=== PATIENT | male | born 1985 | race Two or more races ===

== ENCOUNTER 2024-02-15 02:38 | Emergency (ER) | payer MEDICAID, OTHER ==
[~2024-02-15] VITALS: Ht 180.3 cm; Wt 99.1 kg
--- NOTE | 2024-02-15 03:31 | ED.PDOC ---
History of Present Illness HPI Comments 38-year-old male with no PMHx presents with a chief complaint of flank pain and abdominal pain x onset midnight. Patient states that his pain is localized to his left flank, non-radiating and describes as sharp. Patient also mentions that his abdominal pain is localized to his epigastric region, non-radiating, and is aching in nature. Patient denies any injuries or trauma prior to onset of symptoms. Associated with dysuria. Patient denies hematuria, constipation, nausea, vomiting, or diarrhea. No other symptoms or modifying factors present at this time. Chief Complaint: Flank Pain Time Seen by MD: 03:03 Reviewed Notes: Medications, Allergies Allergies: Coded Allergies: NO KNOWN ALLERGIES (Unverified , 02/15/24) Home Meds Active Scripts Acetaminophen (Acetaminophen Er) 650 Mg Tab, 650 MG PO Q6HPRN PRN for 5 Days, #20 TAB Prov:SOFIA DE SOUZA MD 02/15/24 Ketorolac Tromethamine (Ketorolac Tromethamine) 10 Mg Tab, 1 TAB PO TID for 3 Days, #9 TAB Prov:SOFIA DE SOUZA MD 02/15/24 Tamsulosin Hcl (Flomax) 0.4 Mg Cap, 1 CAP PO DAILY for 7 Days, #30 CAP 11 Refills Prov:SOFIA DE SOUZA MD 02/15/24 Ondansetron Odt 4MG Tab (ZOFRAN PO) 4 Mg Tb, 4 MG PO Q8HPRN PRN for 3 Days, #9 TAB ODT TAB-DISSOLVE IN MOUTH, THEN SWALLOW Prov:SOFIA DE SOUZA MD 02/15/24 Information Source: Patient Mode of Arrival: Ambulatory Severity: Moderate Timing: Hours Duration: Since onset Prehospital treatment: None Vital Signs Vital Signs Date Time Temp Pulse Resp B/P (MAP) Pulse Ox O2 Delivery O2 Flow Rate FiO2 02/15/24 05:06 98.1 54 18 122/83 (96) 98 98.1 Physical Exam General: Awake, alert and oriented. No acute distress. Skin: Skin in warm, dry and intact. Appropriate color for ethnicity. Nailbeds pink with no cyanosis. HEENT: The head is normocephalic and atraumatic. Conjunctivae are clear without exudates or hemorrhage. Sclera is non-icteric. EOM are intact. No signs of nystagmus. Eyelids are normal in appearance without swelling or lesions. Oral mucosa is pink and moist Neck: The neck is supple with normal range of motion. No JVD. Cardiac: Heart rate and rhythm are normal. No murmurs, gallops, or rubs are auscultated. Respiratory: No signs of respiratory distress. Lung sounds are clear in all lobes bilaterally without rales, ronchi, or wheezes. Abdominal: Abdomen is soft, positive left flank and left lower quadrant tenderness. No CVA tenderness. Bowel sounds are present and normoactive in all four quadrants. Extremities: Upper and lower extremities are atraumatic in appearance without deformity or edema. Neurological: The patient is awake, alert and oriented to person, place, and time with normal speech. Speech is clear. There is no facial asymmetry. Psychiatric: Appropriate mood and affect. Good judgement and insight. No visual or auditory hallucinations. Review of Systems: As stated in HPI Past Medical History PAST MEDICAL HISTORY: Denies Surgical History: Denies all surgeries Family History Family History: Reviewed,noncontributory to illness Social History Smoker: Non-Smoker Alcohol: Denies ETOH Use Drugs: Denies Drug Use Lives In: Home Was a procedure done? Was a procedure done?: No Differential Dx Considerations may include: Differential diagnoses considered include: Nephrolithiasis, Abdominal aortic aneurysm, intestinal obstruction, perforated viscus diverticulitis, gastritis, gastroenteritis, peptic ulcer disease, ureteral colic, constipation, GERD, irritable syndrome, abdominal wall pain, nonspecific abdominal pain, constipation, , other X-Ray, Labs, Meds, VS Vital Signs Date Time Temp Pulse Resp B/P (MAP) Pulse Ox O2 Delivery O2 Flow Rate FiO2 02/15/24 05:06 98.1 54 18 122/83 (96) 98 98.1 02/15/24 03:15 97.7 50 20 136/67 (90) 100 Lab Test 02/15/24 03:22 02/15/24 02:53 Range/Units White Blood Count 14.2 H 4.4-10.8 10^3/uL Red Blood Count 5.07 4.5-5.90 10^6/uL Hemoglobin 15.5 13.5-17.5 g/dL Hematocrit 44.7 41.0-53.0 % Mean Corpuscular Volume 88.3 80.0-100.0 fL Mean Corpuscular Hemoglobin 30.5 28.0-32.0 pg Mean Corpuscular Hemoglobin Concent 34.6 32.0-36.0 g/dL Red Cell Distribution Width 13.0 11.8-14.3 % Platelet Count 266 140-450 10^3/uL Mean Platelet Volume 8.6 6.9-10.8 fL Neutrophils (%) (Auto) 81.2 H 37.0-80.0 % Lymphocytes (%) (Auto) 14.5 10.0-50.0 % Monocytes (%) (Auto) 3.6 0.0-12.0 % Eosinophils (%) (Auto) 0.6 0.0-7.0 % Basophils (%) (Auto) 0.1 0.0-2.0 % Neutrophils # (Auto) 11.5 H 1.6-8.6 10 ^3/uL Lymphocytes # (Auto) 2.1 0.4-5.4 10 ^3/uL Monocytes # (Auto) 0.5 0-1.3 10 ^3/uL Eosinophils # (Auto) 0.1 0-0.8 10 ^3/uL Basophils # (Auto) 0 0-0.2 10 ^3/uL Nucleated Red Blood Cells 0.0 % Sodium Level 140 136-145 mmol/L Potassium Level 4.0 3.5-5.1 mmol/L Chloride Level 101 98-107 mmol/L Carbon Dioxide Level 29 20-31 mmol/L Anion Gap 10 5-15 Blood Urea Nitrogen 18 9-23 mg/dL Creatinine 1.24 0.700-1.30 mg/dL Glomerular Filtration Rate Calc 77 >90 mL/min BUN/Creatinine Ratio 14.5 10.0-20.0 Serum Glucose 149 H 74-106 mg/dL Calcium Level 10.2 8.7-10.4 mg/dL Total Bilirubin 0.6 0.2-1.0 mg/dL Aspartate Amino Transferase (AST) 22 13-40 U/L Alanine Aminotransferase (ALT) 27 7-40 U/L Alkaline Phosphatase 91 46-116 U/L Total Protein 7.3 5.7-8.2 g/dL Albumin 4.7 3.2-4.8 g/dL Urine Color Yellow Yellow Urine Clarity Clear Clear Urine pH 5.5 5.0-9.0 Urine Specific [place] 1.029 1.001-1.035 Urine Protein Trace H Negative Urine Ketones Negative Negative Urine Blood Negative Negative /uL Urine Nitrite Negative Negative Urine Bilirubin Negative Negative Urine Urobilinogen Normal Negative mg/dL Urine Leukocyte Esterase Negative Negative /uL Urine RBC None seen 0 - 3 /hpf Urine WBC 1 0 - 3 /hpf Urine Squamous Epithelial Cells None seen <5 /hpf Urine Calcium Oxalate Crystals Few None Seen Urine Bacteria None seen None Seen /hpf Urine Mucus Few None Seen Urine Glucose Normal Normal mg/dL Current Medications Medications (Trade) Dose Ordered Sig/James Route Start Time Stop Time Status Last Admin Ketorolac Tromethamine (Toradol Injection) 60 mg ONCE ONCE IM 02/15/24 03:45 02/15/24 03:46 DC 02/15/24 05:10 Ondansetron HCl (Zofran Po) 4 mg ONCE ONCE PO 02/15/24 03:45 02/15/24 03:46 DC 02/15/24 05:09 Time of 1ST Reevaluation: 03:33 Reevaluation 1ST: Unchanged Patient Education/Counseling: Diagnosis, Treatment, Prognosis Family Education/Counseling: No Family Present Departure 1 Departure Time of Disposition: 05:14 Impression: Primary Impression: Nephrolithiasis Disposition: 01 HOME / SELF CARE / HOMELESS Condition: Stable Additional Instructions: INSTRUCCIONES DE JEIMY DE Urgencias Instrucciones: Krista atentamente todas las instrucciones proporcionadas en lela paquete. Carpenter tomografa computarizada mostr que tiene un clculo renal de 0,2 cm en el lado leigh ann que pasa hacia la vejiga. Aunque le hayan dado el jeimy del Departamento de Emergencias, esto no significa que tenga un "certificado de buena mojgan". Es posible que ests en proceso de desarrollar gisella enfermedad grave. Es por eso que debe regresar al servicio de urgencias sin falta si presenta algn sntoma nuevo o que empeora (especialmente si johana sntomas incluyen dolor en el pecho, dificultad para respirar, dolor abdominal, fiebre, dolor de deann, confusin, dificultad para myron o caminar). Tambin es muy importante que consulte a un mdico de atencin primaria dentro de los prximos 3 a 5 winkler para realizar un seguimiento. Si no puede conseguir gisella ale, regrese al servicio de urgencias para gisella nueva evaluacin. Qu son los clculos renales? Los clculos renales son pequeas piedras que se arturo dentro de los riones cuando las sales y los minerales que se encuentran normalmente en la orina se acumulan y se endurecen. Los clculos renales generalmente se expulsan del cuerpo al orinar, jean a veces pueden quedarse atascados en el nora (figura 1). Si eso sucede, los clculos pueden causar: ?Dolor en el costado o en la parte baja del sha del estmago ?Brie en la orina (que puede hacer que la orina luzca mike o paul) ?Nuseas o vmitos ?Dolor al orinar ?Necesidad de orinar en forma urgente Computing Systems Mechanic s si tengo clculos renales? Si carpenter mdico o enfermero piensa que usted tiene clculos renales, puede indicarle un estudio de imagen para detectar los clculos. (Los estudios de imagen crean imgenes del interior del cuerpo). Computing Systems Mechanic se tratan los clculos renales? El tratamiento de cada persona es un poco distinto. El tratamiento adecuado para usted depender de: ?El tamao, el tipo y la ubicacin del clculo ?Cunto dolor sienta ?Cunto est vomitando Si carpenter clculo es pequeo y solo causa sntomas leves, es posible que pueda quedarse en casa y esperar hasta que carpenter cuerpo lo expulse en la orina. Si probar esta opcin, carpenter mdico le dir qu hacer. [place] suele incluir: ?Beber mucho lquido ?Usar medicinas para el dolor o medicinas que faciliten la expulsin del clculo ?Orinar en un colador para atrapar el clculo cuando salga Si carpenter clculo es riky o causa sntomas graves, es posible que necesite tratamiento en el hospital. Los clculos renales que no se expulsan naturalmente se pueden tratar con: ?"Litotripsia por onda de choque" Gisella mquina usa ondas sonoras para romper los clculos en pedazos ms pequeos. Lela procedimiento no incluye ciruga, jean puede ser doloroso. ?"Nefrolitotoma percutnea" Lela es un tipo especial de ciruga en la que un mdico hace orificios muy pequeos en carpenter piel, y pasa unos instrumentos minsculos a travs de los orificios y dentro del rin. Luego, elimina el clculo. ?"Ureteroscopa" Un mdico introduce un tubo ivory en carpenter cuerpo de la misma manera que sale la orina. Usa instrumentos ubicados en el extremo del tubo para romper o sacar los clculos. A qu problemas lisbeth prestar atencin? Si intentar expulsar el clculo renal en carpenter casa, llame a carpenter mdico o enfermero para que lo asesore si: ?No orina desde hace ms de 8 horas. ?Tiene fiebre de 100.4 F (38 C) o ms, o escalofros. ?Carpenter orina es opaca, huele mal o tiene ms brie que antes. ?El dolor del clculo renal empeora mucho y la medicina para el dolor no ayuda. ?Vomita y no puede retener los lquidos. ?El dolor no desaparece en 1 a 2 semanas Qu puedo hacer para no volver a tener clculos renales? Nini agustina agua. Es posible que tambin deba hacer cambios en carpenter dieta, dependiendo de la composicin de johana clculos. Si es as, el mdico o enfermero puede decirle qu alimentos evitar. El mdico o enfermero tambin podra recetarle medicinas nuevas para evitar que se formen nuevos clculos renales. e-Prescriptions Acetaminophen (Acetaminophen Er) 650 Mg Tab 650 MG PO Q6HPRN PRN for 5 Days, #20 TAB Prov: SOFIA DE SOUZA MD 02/15/24 Ketorolac Tromethamine (Ketorolac Tromethamine) 10 Mg Tab 1 TAB PO TID for 3 Days, #9 TAB Prov: SOFIA DE SOUZA MD 02/15/24 Tamsulosin Hcl (Flomax) 0.4 Mg Cap 1 CAP PO DAILY for 7 Days, #30 CAP 11 Refills Prov: SOFIA DE SOUZA MD 02/15/24 Ondansetron Odt 4MG Tab (ZOFRAN PO) 4 Mg Tb 4 MG PO Q8HPRN PRN for 3 Days, #9 TAB ODT TAB-DISSOLVE IN MOUTH, THEN SWALLOW Prov: SOFIA DE SOUZA MD 02/15/24 Comments 38-year-old male with left UVJ stone 0.2 cm. No urinary tract infection on UA. Patient well-appearing, nontoxic. Advised prompt follow-up with PCP, return to the ED with any new, worsening or concerning symptoms. Extensive evaluation was performed in attempt to identify or rule out: (See differential diagnosis section) The following tests were ordered, and results were reviewed by me: (See diagnostic results section) The following test were independently interpreted by me: N/A I reviewed and agreed with the following test results read by other providers: CT abdomen and pelvis I reviewed the following notes from the pt's past medical encounters: (None available at this time) Additional information was gathered from interviewing the following independent historians: N/A Discussion of management or test interpretation with external physician/other qualified health residential child care counselor: N/A Addressed an acute or chronic illness that poses a threat to life or bodily function: Abdominal pain, flank pain, kidney stone Decision regarding hospitalization or escalation of hospital level of care: Risk and benefits of admission for further treatment of patient's condition was considered. Due to patient's current clinical condition, high risk of decline and poor outcome if discharged and need for further inpatient management and monitoring, patient will be admitted to the hospital. Diagnosis or treatment significantly limited by social determinants of health: Patient has no primary care provider Decision regarding hospitalization or escalation of hospital level of care: Risks and benefits of admission for further treatment of patient's condition was considered however due to patient's stable condition patient will be discharged to follow up closely or return to care for worsening of condition or inability to follow up. Critical Care Note Critical Care Time?: No Stability Stability form required: No I personally scribed for SOFIA DE SOUZA MD ([email or web address]) on 02/15/24 at 03:31. Electronically submitted by Moe Schneider ([email or web address]). SOFIA DE SOUZA MD Feb 15, 2024 03:31
[2024-02-15 03:33] LABS: Urine Bacteria None Seen /hpf (None Seen)
[2024-02-15 04:01] LABS: Urine Blood Negative /uL (Negative); Urine Clarity Clear (Clear); Urine Color Yellow (Yellow); Urine Mucus FEW (None Seen); Urine Protein, UAD TRACE (Negative); Urine Specific Gravity 1.029 (1.001-1.035); Urine Urobilinogen Normal (Negative); Urine WBC 1 /hpf (0 - 3); Urine pH 5.5 (5.0-9.0)
[2024-02-15 04:22] LABS: Basophils # (auto) 0 10 ^3/uL (0-0.2); Basophils % (auto) 0.1 % (0.0-2.0); Eosinophils # (auto) 0.1 10 ^3/uL (0-0.8); Eosinophils % (auto) 0.6 % (0.0-7.0); Hematocrit 44.7 % (41.0-53.0); Hemoglobin 15.5 g/dL (13.5-17.5); Lymphocytes # (auto) 2.1 10 ^3/uL (0.4-5.4); Lymphocytes % (auto) 14.5 % (10.0-50.0); Mean Corpuscular Hemoglobin 30.5 pg (28.0-32.0); Mean Corpuscular Hgb Conc. 34.6 g/dL (32.0-36.0); Mean Corpuscular Volume 88.3 fL (80.0-100.0); Monocytes # (auto) 0.5 10 ^3/uL (0-1.3); Monocytes % (auto) 3.6 % (0.0-12.0); Neutrophils # (auto) 11.5 10 ^3/uL (1.6-8.6); Neutrophils % (auto) 81.2 % (37.0-80.0); Platelet Count (auto) 266 10^3/uL (140-450); Red Blood Cells 5.07 10^6/uL (4.5-5.90); White Blood Cell 14.2 10^3/uL (4.4-10.8)
[2024-02-15 04:30] LABS: Alanine Aminotransferase 27 U/L (7-40); Albumin 4.7 g/dL (3.2-4.8); Alkaline Phosphatase 91 U/L (46-116); Anion Gap 10 (5-15); Aspartate Aminotransferase 22 U/L (13-40); BUN/Creatinine Ratio 14.5 (10.0-20.0); Bilirubin, Total 0.6 mg/dL (0.2-1.0); Blood Urea Nitrogen 18 mg/dL (9-23); Calcium 10.2 mg/dL (8.7-10.4); Carbon Dioxide 29 mmol/L (20-31); Chloride 101 mmol/L (98-107); Sodium 140 mmol/L (136-145); Total Protein 7.3 g/dL (5.7-8.2)
[2024-02-15 04:39] LABS: Glucose 149 mg/dL (74-106)
--- NOTE | 2024-02-15 04:41 | DVH ---
Exam: CT CT AB PEL WO CON-NO ORAL OR IV History: Left flank pain Comparison Study: None Technique: Multidetector spiral CT of the abdomen was performed from lung bases to pubic symphysis. Imaging was performed without IV contrast. Axial, coronal and sagittal multiplanar reformats were ob tained from the axial data set by the technologist. Radiation Dose : 1. Abdomen/Pelvis: CTDIvol 12.8 mGy, DLP 835.8 mGy*cm. Findings: Evaluation of solid organs is limited due to lack of intravenous contrast use. Lung Bases: No acute or significant lung base finding. Normal heart size. No pleural or pericardial effusion. Liver: Hepatomegaly. Gallbladder and Biliary Tree: Unremarkable Spleen: Unremarkable Pancreas: The pancreas is grossly normal in appearance. Adrenal Glands: Unremarkable Kidneys: Right kidney is unremarkable. Mild to moderate left hydroureteronephrosis. 0.2 cm stone is present at the left UVJ. Bladder: Grossly unremarkable for degree of distention. Bowel: The stomach is grossly normal in appearance. Small bowel and colon are normal in caliber and d istribution. The appendix is not visualized; however, no secondary findings of acute appendicitis id entified. Ascites: Absent Lymphadenopathy: No mesenteric, retroperitoneal or periportal lymphadenopathy. Abdominal Wall and Mesentery: Unremarkable. Vasculature: The visualized abdominal aorta is normal in size and caliber. Evaluation of abdominal a nd pelvic vessels is limited due to lack of intravenous contrast. Pelvic Organs: Unremarkable Musculoskeletal: No aggressive focal bony lesions, acute fractures or dislocation. IMPRESSION: Mild to moderate left hydronephrosis with 0.2 cm stone at the left UVJ likely representing a stone ju st passing into the urinary bladder. Radiation optimization: All CT scans at this facility use at least one of these dose optimization ebony hniques: automated exposure control mA and/or kV adjustment per patient size (includes targeted exam s where dose is matched to clinical indication) or iterative reconstruction.
[2024-02-15 05:06] VITALS: BP 122/83; PULSE 54; RESP 18; TEMP 98.1; O2SAT 98
[2024-02-15] MEDS: ONDANSETRON ODT 4 MG TAB PO ONE (05:09)
[2024-02-15] MEDS: KETOROLAC TROMETH 30 MG/ML 1ML VIAL IM ONE (05:10)
[2024-02-15] MEDS ORDERED: KETO10TA PO (05:19)
[2024-02-15] MEDS ORDERED: TAMS-35 PO (05:19)
[2024-02-15] MEDS ORDERED: ZOFR4T PO (05:19)
[2024-02-15] MEDS ORDERED: ACET650T12 PO (05:19)
== END 2024-02-15 05:33 | disposition home or self-care (01) ==
LOC: ER 02:38
DX: N20.0 Calculus of kidney (principal); Z79.899 Other long term (current) drug therapy
CPT/HCPCS: 36415; 74176; 80053; 81001; 85025; 96372; 99285; J1885; Q0162